=== PATIENT | male | born 1965 | race Caucasian/White ===

== ENCOUNTER 2021-01-24 16:22 | Emergency (ER) | payer BC ==
[2021-01-24 17:29] VITALS: RESP 20
[2021-01-24] MEDS ORDERED: ONDANSETRON 4 MG/2 ML VIAL IVP STA (19:50)
[2021-01-24] MEDS ORDERED: SODIUM CHLORIDE 0.9% 1,000 ML IV ONE (19:50)
[2021-01-24] MEDS ORDERED: SODIUM CHLORIDE 0.9% 50 ML IVPB ONE (20:00)
[2021-01-24] MEDS ORDERED: CASIRIVIMAB (REGN10933) (EUA) 600 MG, IMDEVIMAB (REGN10987) (EUA) 600 MG in SODIUM CHLO... IVPB ONE (20:15)
--- NOTE | 2021-01-24 21:00 | ED ---
General Adult HPI - General Chief complaint: Upper Respiratory Infection Stated complaint: COVID+ wants infusion Time Seen by Provider: 01/24/21 18:58 Source: patient Mode of arrival: ambulatory Limitations: no limitations - History of Present Illness Initial comments: 55-year-old male patient past medical history significant for asthma and diabetes presents to the emergency department today requesting monoclonal antibodies after testing positive for COVID-19. Patient states his been sick for the last 8 days with cough, shortness of breath, nausea, body aches. States he went to his doctor today and tested positive. Patient states he has been able to keep down cantaloupe and water but no other foods. He denies any diarrhea. States he does have extreme nausea and occasionally vomits when he stands up. Denies any chest pain. Denies taking any medications today. His primary care doctor did give him a prescription for Zofran today. Patient denies any recent rash, abdominal pain, constipation, back pain, numbness, tingling, dizziness, weakness, hematuria, dysuria, urinary urgency, urinary frequency, headache, visual changes, or any other complaints. - Related Data Allergies Allergy/AdvReac Type Severity Reaction Status Date / Time No Known Allergies Allergy Verified 01/24/21 17:29 Review of Systems ROS Statement: Those systems with pertinent positive or pertinent negative responses have been documented in the HPI. ROS Other: All systems not noted in ROS Statement are negative. Past Medical History Past Medical History: Asthma, Diabetes Mellitus History of Any Multi-Drug Resistant Organisms: None Reported Past Surgical History: No Surgical Hx Reported Past Psychological History: No Psychological Hx Reported Smoking Status: Never smoker Past Alcohol Use History: None Reported Past Drug Use History: None Reported General Exam Limitations: no limitations General appearance: alert, in no apparent distress, other (This is a well- developed, well-nourished adult male patient in no acute distress. ) Eye exam: Present: normal appearance, PERRL, EOMI. Absent: scleral icterus, conjunctival injection, periorbital swelling ENT exam: Present: normal exam, normal oropharynx, mucous membranes moist Respiratory exam: Present: normal lung sounds bilaterally. Absent: respiratory distress, wheezes, rales, rhonchi, stridor Cardiovascular Exam: Present: regular rate, normal rhythm, normal heart sounds. Absent: systolic murmur, diastolic murmur, rubs, gallop, clicks GI/Abdominal exam: Present: soft, normal bowel sounds. Absent: distended, tenderness, guarding, rebound, rigid Neurological exam: Present: alert, oriented X3, CN II-XII intact Psychiatric exam: Present: normal affect, normal mood Skin exam: Present: warm, dry, intact, normal color. Absent: rash Course Vital Signs 01/24/21 01/24/21 17:26 21:58 Temperature 100.1 F H 1000.0 F H Pulse Rate 94 98 Respiratory 20 20 Rate Blood Pressure 143/84 141/77 O2 Sat by Pulse 94 L 91 L Oximetry Medical Decision Making - Medical Decision Making 85-year-old male patient presented to the emergency department today requesting infusion of antibodies for COVID-19 infection. Physical examination was unremarkable. Oxygenating well here. He was given IV fluids and Zofran. He was given regeneron effusion. Tolerated this well. To be discharged follow up with his primary care physician for recheck in 1-2 days. Return parameters were discussed in detail. He verbalizes understanding and agrees with this plan. Case discussed with my attending Dr. Kearney. Disposition Clinical Impression: COVID-19 Disposition: HOME SELF-CARE Condition: Good Instructions (If sedation given, give patient instructions): Coronavirus Disease 2019 (COVID-19) Additional Instructions: Increase fluids. Take medications as directed. Follow up with her primary care physician for recheck in 1-2 days. Return for any new, worsening, or concerning symptoms Is patient prescribed a controlled substance at d/c from ED?: No Referrals: Jd Wahl MD [Primary Care Provider] - 1-2 days Time of Disposition: 21:52
[2021-01-24 22:07] VITALS: BP 141/77; PULSE 98
[2021-01-25 00:10] VITALS: TEMP 100
== END 2021-01-24 22:00 | disposition home or self-care (01) ==
LOC: EC 16:22
DX: U07.1 COVID-19 (principal); J45.909 Unspecified asthma, uncomplicated; E11.9 Type 2 diabetes mellitus without complications
CPT/HCPCS: 99284; 96365; 96375; 96361; J2405; Q0243; 99283